=== PATIENT | female | born 1980 | race Two or more races ===

== ENCOUNTER 2019-10-23 21:56 | Emergency (ER) | payer SELFPAY ==
[~2019-10-23] VITALS: Ht 162.6 cm; Wt 68.0 kg
[~2019-10-23 21:56] MED LIST: None at this Time
[2019-10-23] MEDS ORDERED: SODIUM CHLORIDE FLUSH 10ML SYR IVF ONE (22:30)
[2019-10-23] MEDS ORDERED: MORPHINE SULFATE 4 MG/ML, 1ML IVPush PRN (22:30)
[2019-10-23] MEDS ORDERED: ONDANSETRON 2MG/ML, 2ML IVPush ONE (22:30)
[2019-10-23] MEDS ORDERED: SODIUM CHLORIDE 0.9% 1,000ML IVBOLUS ONE (22:30)
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
[2019-10-23] MEDS ORDERED: MORPHINE SULFATE 4 MG/ML, 1ML ONE (23:02)
[2019-10-23] MEDS ORDERED: ONDANSETRON 2MG/ML, 2ML ONE (23:02)
[2019-10-23 23:05] LABS: BASOPHILS # (AUTO) 0.02 x10^3/uL (0-0.1); BASOPHILS % (AUTO) 0 % (0-1); EOSINOPHILS # (AUTO) 0.23 x10^3/uL (0-0.4); EOSINOPHILS % (AUTO) 3 % (1-7); LYMPHOCYTES # (AUTO) 1.43 x10^3/uL (1-3.4); LYMPHOCYTES % (AUTO) 17 % (22-44); MD NO; MEAN CORPUSCULAR HEMOGLOBIN 28.4 pg (27.0-34.8); MEAN CORPUSCULAR HGB CONC 34.4 g/dL (32.4-35.8); MEAN CORPUSCULAR VOLUME 82.7 fL (80-100); MEAN PLATELET VOLUME 7.9 fL (7.4-10.4); MONOCYTES # (AUTO) 0.88 x10^3/uL (0.2-0.8); MONOCYTES % (AUTO) 11 % (2-9); NEUTROPHILS % (AUTO) 69 % (42-75); PLATELET COUNT 374 x10^3/uL (130-400); RED BLOOD COUNT 4.82 x10^6/uL (3.82-5.3); RED CELL DISTRIBUTION WIDTH 13.2 % (9.6-15.2)
--- NOTE | 2019-10-23 23:09 | NUR ---
Medicated per MAR.
[2019-10-23 23:16] LABS: ALANINE AMINOTRANSFERASE 19 U/L (12-78); ALBUMIN 3.5 g/dL (3.4-5.0); ANION GAP 7 mmol/L (5-15); CALCIUM 8.4 mg/dL (8.5-10.1); CHLORIDE 112 mmol/L (98-107); CREATININE 0.78 mg/dL (0.55-1.02)
[2019-10-23 23:21] LABS: ALKALINE PHOSPHATASE 59 U/L (45-117); BILIRUBIN,TOTAL 1.3 mg/dL (0.2-1.0); TOTAL PROTEIN 7.2 g/dL (6.4-8.2)
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
--- NOTE | 2019-10-23 23:36 | NUR ---
Pt in [place].
[2019-10-23 23:38] LABS: MICROSCOPIC AUTO
[2019-10-23 23:39] LABS: CULTURE INDICATED? NO
[2019-10-23] MEDS ORDERED: OMNIPAQUE 350 MG/ML, 100ML BOTTLE ONE (23:51)
--- NOTE | 2019-10-24 00:14 | NUR ---
break rn note: pt is resting vss updated family at bed side pt denied any other needs
[2019-10-24 01:19] VITALS: BP 106/70
--- NOTE | 2019-10-24 01:20 | NUR ---
Pt awake resting, no c/o pain at this time, vss.
== END 2019-10-24 01:55 | disposition home or self-care (01) ==
LOC: ED 10-24 01:42
DX: S06.0X0A Concussion without loss of consciousness, initial encounter (principal); R07.89 Other chest pain; R10.12 Left upper quadrant pain; M54.2 Cervicalgia; Y04.8XXA Assault by other bodily force, initial encounter; Y93.89 Activity, other specified; Y92.410 Unspecified street and highway as the place of occurrence of the external cause; Y99.8 Other external cause status
CPT/HCPCS: 36415; 70450; 70486; 71045; 72125; 72131; 74177; 80053; 81001; 83690; 84703; 85025; 96361; 96374; 96375; 99285; J2270; J2405; J7030; Q9967